=== PATIENT | male | born 1935 | race Hispanic/Latino ===

== ENCOUNTER 2020-11-09 13:26 | Emergency (ER) | payer MEDICARE, MEDICAID ==
[~2020-11-09] VITALS: Ht 152.4 cm; Wt 45.0 kg
[~2020-11-09 13:26] MED LIST: NAPROSYN500 MG OR
[2020-11-09 14:44] LABS: IMMATURE GRANULOCYTES 0.5 % (0.0-5.0); NEUT# 4.99 thou/uL (1.82-7.42); RED BLOOD COUNT 3.06 mill/uL (4.70-6.10); RED CELL DISTRI WIDTH 12.7 % (11.5-15.5)
[2020-11-09 14:51] LABS: HEMATOCRIT 30.6 % (39.0-50.0); HEMOGLOBIN 9.8 g/dl (14.0-18.0)
[2020-11-09 15:08] LABS: ALBUMIN 4.1 g/dL (3.2-5.0); ALKALINE PHOSPHATASE 61 u/l (38-126); ANION GAP 15 (6-22 (CALC)); BUN 25 mg/dL (8-23); BUN/CREATININE RATIO 15 (12-20 (CALC)); CARBON DIOXIDE 20 mmol/l (22-30); CHLORIDE 104 mmol/l (95-108); CREATININE 1.7 mg/dL (0.7-1.3); GFR 38 ML/MIN (>=60 (CALC)); GFR FOR AFR.AMER. 46 ML/MIN (>=60 (CALC)); POTASSIUM 4.4 mmol/l (3.5-5.1); SGOT/AST 19 u/l (19-48); SODIUM 135 mmol/l (137-146); TOTAL PROTEIN 7.5 g/dL (6.3-8.2)
[2020-11-09 15:15] LABS: MYOGLOBIN 60 ng/mL (0 - 121)
[2020-11-09 15:16] LABS: BILIRUBIN, TOTAL 0.4 mg/dL (0.0-1.4)
[2020-11-09 15:45] LABS: URINE BILIRUBIN - DIPSTICK NEGATIVE (NEGATIVE); URINE BLOOD DIPSTICK SMALL (NEGATIVE); URINE COLOR YELLOW; URINE GLUCOSE - DIPSTICK NEGATIVE (NEGATIVE); URINE KETONE NEGATIVE (NEGATIVE); URINE LEUK ESTERASE MODERATE (NEGATIVE); URINE NITRITE - DIPSTICK NEGATIVE (Negative); URINE PH 5.5 (4.5-8.0); URINE PROTEIN - DIPSTICK NEGATIVE (NEG-TRACE); URINE SPECIFIC GRAVITY 1.025; URINE UROBILINOGEN - DIPSTICK 0.2 E.U./dL (0.2)
[2020-11-09 15:56] LABS: URINE WBC 50-100 WBC/hpf (0-5)
[2020-11-09] MEDS ORDERED: KEFLEX500 M1 PO (16:00)
[2020-11-09 16:03] VITALS: BP 160/89
== END 2020-11-09 16:19 | disposition home or self-care (01) ==
LOC: ED 13:26
PROVIDERS: Emergency Medicine
DX: N39.0 Urinary tract infection, site not specified (principal); B96.1 Klebsiella pneumoniae [K. pneumoniae] as the cause of diseases classified elsewhere; S79.912A Unspecified injury of left hip, initial encounter; V18.0XXA Pedal cycle driver injured in noncollision transport accident in nontraffic accident, initial encounter; Y93.55 Activity, bike riding; Z20.822 Contact with and (suspected) exposure to COVID-19

== ENCOUNTER 2021-06-05 23:23 | Emergency (ER) | payer MEDICARE, MEDICAID ==
[~2021-06-05 23:23] MED LIST changes: +KEFLEX500 M1 PO
[2021-06-06] MEDS ORDERED: HYDROCODONE/ACE1 T12 PO (00:27)
[2021-06-06 00:45] LABS: HEMATOCRIT 30.7 % (39.0-50.0); HEMOGLOBIN 9.8 g/dl (14.0-18.0); IMMATURE GRANULOCYTES 0.5 % (0.0-5.0); MEAN CORPUSCULAR HGB 32.9 pG CALC (26.0-32.0); MEAN CORPUSCULAR HGB CONC 31.9 g/dL CAL (32.0-36.0); NEUT# 5.69 thou/uL (1.82-7.42); RED BLOOD COUNT 2.98 mill/uL (4.70-6.10); RED CELL DISTRI WIDTH 13.3 % (11.5-15.5)
[2021-06-06 01:05] LABS: ALBUMIN 4.2 g/dL (3.2-5.0); BILIRUBIN, TOTAL 0.4 mg/dL (0.0-1.4); CREATININE 1.4 mg/dL (0.7-1.3); POTASSIUM 4.6 mmol/l (3.5-5.1); TOTAL PROTEIN 7.5 g/dL (6.3-8.2)
[2021-06-06 01:12] LABS: URINE BILIRUBIN - DIPSTICK NEGATIVE (NEGATIVE); URINE BLOOD DIPSTICK NEGATIVE (NEGATIVE); URINE COLOR YELLOW; URINE GLUCOSE - DIPSTICK NEGATIVE (NEGATIVE); URINE KETONE NEGATIVE (NEGATIVE); URINE LEUK ESTERASE NEGATIVE (NEGATIVE); URINE PROTEIN - DIPSTICK TRACE mg/dL (NEG-TRACE); URINE UROBILINOGEN - DIPSTICK 0.2 E.U./dL (0.2)
[2021-06-06 01:20] LABS: URINE NITRITE - DIPSTICK NEGATIVE (Negative)
[2021-06-06] MEDS ORDERED: AMLODIPINE BESYL5 MG PO (01:45)
[2021-06-06] MEDS ORDERED: LISINOP/HCTZ1 TA1 PO (01:45)
[2021-06-06 02:06] VITALS: BP 102/55
== END 2021-06-06 02:12 | disposition home or self-care (01) ==
LOC: ED 23:23
PROVIDERS: Family Medicine
DX: I10 Essential (primary) hypertension (principal); T46.5X6A Underdosing of other antihypertensive drugs, initial encounter; Z91.128 Patient's intentional underdosing of medication regimen for other reason

== ENCOUNTER 2021-12-05 07:30 | Emergency (ER) | payer MEDICARE, MEDICAID ==
[~2021-12-05] VITALS: Ht 152.4 cm; Wt 70.0 kg
[~2021-12-05 07:30] MED LIST changes: +AMLODIPINE BESYL5 MG PO; +HYDROCODONE/ACE1 T12 PO; +LISINOP/HCTZ1 TA1 PO
[2021-12-05 08:22] LABS: HEMATOCRIT 32.5 % (39.0-50.0); HEMOGLOBIN 10.5 g/dl (14.0-18.0); IMMATURE GRANULOCYTES 0.2 % (0.0-5.0); MEAN CORPUSCULAR HGB 29.9 pG CALC (26.0-32.0); MEAN CORPUSCULAR HGB CONC 32.3 g/dL CAL (32.0-36.0); NEUT# 3.96 thou/uL (1.82-7.42); RED BLOOD COUNT 3.51 mill/uL (4.70-6.10); RED CELL DISTRI WIDTH 12.6 % (11.5-15.5)
[2021-12-05 08:30] LABS: MEAN CELL VOLUME 92.6 fL CALC (80.0-100.0)
[2021-12-05 08:36] LABS: ALBUMIN 4.1 g/dL (3.2-5.0); BILIRUBIN, TOTAL 0.5 mg/dL (0.0-1.4); CREATININE 1.6 mg/dL (0.7-1.3); POTASSIUM 4.7 mmol/l (3.5-5.1); TOTAL PROTEIN 7.6 g/dL (6.3-8.2)
[2021-12-05 10:33] LABS: URINE BILIRUBIN - DIPSTICK NEGATIVE (NEGATIVE); URINE BLOOD DIPSTICK TRACE-INTACT (NEGATIVE); URINE COLOR YELLOW; URINE GLUCOSE - DIPSTICK NEGATIVE (NEGATIVE); URINE KETONE NEGATIVE (NEGATIVE); URINE LEUK ESTERASE NEGATIVE (NEGATIVE); URINE PH 7.5 (4.5-8.0); URINE PROTEIN - DIPSTICK NEGATIVE (NEG-TRACE); URINE SPECIFIC GRAVITY 1.015; URINE UROBILINOGEN - DIPSTICK 0.2 E.U./dL (0.2)
[2021-12-05 10:42] LABS: URINE NITRITE - DIPSTICK NEGATIVE (Negative)
[2021-12-05] MEDS ORDERED: ZESTRIL5 M1 PO (10:45)
[2021-12-05] MEDS ORDERED: NORVASC5 M1 PO (10:45)
[2021-12-05 11:35] VITALS: BP 180/83
[2021-12-05] MEDS ORDERED: TRAMADOL HYDROC50 M1 PO (11:55)
== END 2021-12-05 12:21 | disposition home or self-care (01) ==
LOC: ED 07:30
PROVIDERS: Family Medicine
DX: I10 Essential (primary) hypertension (principal); T46.5X6A Underdosing of other antihypertensive drugs, initial encounter; Z91.128 Patient's intentional underdosing of medication regimen for other reason

== ENCOUNTER 2021-12-20 10:30 | Emergency (ER) | payer MEDICARE, MEDICAID ==
[~2021-12-20] VITALS: Ht 152.4 cm; Wt 57.0 kg
[~2021-12-20 10:30] MED LIST changes: +NORVASC5 M1 PO; +TRAMADOL HYDROC50 M1 PO; +ZESTRIL5 M1 PO
[2021-12-20] MEDS ORDERED: HYDROCORT2.5 % TOP (11:40)
[2021-12-20] MEDS ORDERED: MEDDOSEPAK PO (11:40)
[2021-12-20 11:58] VITALS: BP 161/78
== END 2021-12-20 12:00 | disposition home or self-care (01) ==
LOC: ED 10:30
DX: R21 Rash and other nonspecific skin eruption (principal); I10 Essential (primary) hypertension

== ENCOUNTER 2022-11-28 23:31 | Emergency (ER) | payer MEDICARE, MEDICAID ==
[~2022-11-28] VITALS: Ht 152.4 cm; Wt 52.0 kg
[~2022-11-28 23:31] MED LIST changes: +HYDROCORT2.5 % TOP; +MEDDOSEPAK PO
[2022-11-29 00:05] VITALS: BP 146/67
[2022-11-29 00:15] VITALS: BP 149/65
[2022-11-29 00:30] VITALS: BP 144/66
[2022-11-29 00:45] VITALS: BP 147/68
[2022-11-29] MEDS ORDERED: MEDDOSEPAK PO (00:57)
[2022-11-29 01:00] VITALS: BP 148/67
[2022-11-29 01:15] VITALS: BP 154/61
== END 2022-11-29 01:32 | disposition home or self-care (01) ==
LOC: ED 23:31
DX: M17.0 Bilateral primary osteoarthritis of knee (principal); I10 Essential (primary) hypertension

== ENCOUNTER 2022-12-04 10:12 | Emergency (ER) | payer MEDICARE, MEDICAID ==
[~2022-12-04] VITALS: Ht 152.4 cm; Wt 54.0 kg
[2022-12-04] MEDS ORDERED: XANAX0.25 MG PO (12:21)
[2022-12-04 13:41] VITALS: BP 185/77
== END 2022-12-04 13:51 | disposition home or self-care (01) ==
LOC: ED 10:12
DX: G47.09 Other insomnia (principal); T38.0X5A Adverse effect of glucocorticoids and synthetic analogues, initial encounter; I10 Essential (primary) hypertension

== ENCOUNTER 2023-01-12 11:52 | Emergency (ER) | payer MEDICARE, MEDICAID ==
[~2023-01-12] VITALS: Ht 152.4 cm; Wt 52.0 kg
[2023-01-12] VITALS (9 sets, daily range): BP systolic 193–206; BP diastolic 76–89
[~2023-01-12 11:52] MED LIST changes: +XANAX0.25 MG PO
[2023-01-12] MEDS ORDERED: NORVASC5 M1 PO (13:14)
== END 2023-01-12 14:43 | disposition home or self-care (01) ==
LOC: ED 11:52
DX: K59.00 Constipation, unspecified (principal); I10 Essential (primary) hypertension

== ENCOUNTER 2023-02-26 16:35 | Observation (INO) | payer MEDICARE, MEDICAID ==
[~2023-02-26] VITALS: Ht 152.4 cm; Wt 72.0 kg
[2023-02-26] VITALS (11 sets, daily range): BP systolic 143–174; BP diastolic 61–73
[2023-02-26 17:22] LABS: BASO% 0.4 % (0-3); EOS% 3.1 % (0-8); IMMATURE GRANULOCYTES 0.4 % (0.0-5.0); LYMPH% 17.2 % (15-41); MEAN CORPUSCULAR HGB 31.8 pG CALC (26.0-32.0); MEAN CORPUSCULAR HGB CONC 31.3 g/dL CAL (32.0-36.0); MONO% 9.9 % (2-13); NEUT# 4.72 thou/uL (1.82-7.42); RED BLOOD COUNT 2.36 mill/uL (4.70-6.10); RED CELL DISTRI WIDTH 15.3 % (11.5-15.5)
[2023-02-26 17:24] LABS: URINE BILIRUBIN - DIPSTICK NEGATIVE (NEGATIVE); URINE BLOOD DIPSTICK SMALL (NEGATIVE); URINE COLOR YELLOW; URINE GLUCOSE - DIPSTICK NEGATIVE (NEGATIVE); URINE KETONE NEGATIVE (NEGATIVE); URINE LEUK ESTERASE NEGATIVE (NEGATIVE); URINE NITRITE - DIPSTICK NEGATIVE (Negative); URINE PROTEIN - DIPSTICK NEGATIVE (NEG-TRACE); URINE SPECIFIC GRAVITY 1.015; URINE UROBILINOGEN - DIPSTICK 0.2 E.U./dL (0.2)
[2023-02-26 17:26] LABS: HEMOGLOBIN 7.5 g/dl (14.0-18.0); MEAN CELL VOLUME 101.7 fL CALC (80.0-100.0)
[2023-02-26 17:33] LABS: URINE RBC 0-2 RBC/hpf (0-5)
[2023-02-26 17:35] LABS: ALBUMIN 3.7 g/dL (3.2-5.0); ALKALINE PHOSPHATASE 83 u/l (38-126); CARBON DIOXIDE 25 mmol/l (22-30); CHLORIDE 108 mmol/l (95-108); CREATININE 1.6 mg/dL (0.7-1.3); GFR FOR AFR.AMER. 50 ML/MIN (>=60 (CALC)); GFR OTHER RACES 41 ML/MIN (>=60 (CALC)); SGOT/AST 22 u/l (19-48); SODIUM 138 mmol/l (137-146); TOTAL PROTEIN 6.2 g/dL (6.3-8.2)
[2023-02-26 17:42] LABS: ANION GAP 10 (6-22 (CALC)); BILIRUBIN, TOTAL 0.2 mg/dL (0.2-1.3); BUN 45 mg/dL (8-23); BUN/CREATININE RATIO 28 (12-20 (CALC)); POTASSIUM 5.3 mmol/l (3.5-5.1)
[2023-02-27] VITALS (9 sets, daily range): BP systolic 124–172; BP diastolic 37–70
[2023-02-27 05:59] LABS: HEMATOCRIT 22.5 % (39.0-50.0); HEMOGLOBIN 7.2 g/dl (14.0-18.0); MEAN CELL VOLUME 101.8 fL CALC (80.0-100.0); MEAN CORPUSCULAR HGB 32.6 pG CALC (26.0-32.0); RED BLOOD COUNT 2.21 mill/uL (4.70-6.10); RED CELL DISTRI WIDTH 15.3 % (11.5-15.5)
[2023-02-28] VITALS (10 sets, daily range): BP systolic 127–169; BP diastolic 54–73
[2023-02-28 06:26] LABS: BASO% 0.4 % (0-3); EOS% 3.1 % (0-8); HEMATOCRIT 23.2 % (39.0-50.0); HEMOGLOBIN 7.2 g/dl (14.0-18.0); IMMATURE GRANULOCYTES 0.4 % (0.0-5.0); LYMPH% 21.7 % (15-41); MEAN CELL VOLUME 100.9 fL CALC (80.0-100.0); MEAN CORPUSCULAR HGB 31.3 pG CALC (26.0-32.0); MONO% 10.2 % (2-13); NEUT# 4.29 thou/uL (1.82-7.42); NEUT% 64.2 % (42-76); RED BLOOD COUNT 2.3 mill/uL (4.70-6.10); RED CELL DISTRI WIDTH 15.1 % (11.5-15.5)
[2023-02-28 06:49] LABS: ALBUMIN 3.2 g/dL (3.2-5.0); ALKALINE PHOSPHATASE 64 u/l (38-126); ANION GAP 9 (6-22 (CALC)); BILIRUBIN, TOTAL 0.2 mg/dL (0.2-1.3); BUN 28 mg/dL (8-23); BUN/CREATININE RATIO 22 (12-20 (CALC)); CARBON DIOXIDE 24 mmol/l (22-30); CHLORIDE 109 mmol/l (95-108); CREATININE 1.3 mg/dL (0.7-1.3); GFR FOR AFR.AMER. > 60 ML/MIN (>=60 (CALC)); GFR OTHER RACES 52 ML/MIN (>=60 (CALC)); POTASSIUM 4.9 mmol/l (3.5-5.1); SGOT/AST 21 u/l (19-48); SODIUM 137 mmol/l (137-146); TOTAL PROTEIN 5.7 g/dL (6.3-8.2)
[2023-02-28] MEDS ORDERED: AMOXICILLIN500 MG PO (13:32)
== END 2023-02-28 18:28 ==
LOC: ED 16:35 → ED-I 18:50 → ED 19:12 → MS2 19:13
PROVIDERS: Family Medicine; Nurse Practitioner Family; ADMIT Internal Medicine; ATTEND Internal Medicine
PROC: 30233N1 Transfusion of Nonautologous Red Blood Cells into Peripheral Vein, Percutaneous Approach (ICD-10-PCS; principal; 2023-02-28)
DX: J18.9 Pneumonia, unspecified organism (principal); D50.9 Iron deficiency anemia, unspecified; N17.9 Acute kidney failure, unspecified; I12.9 Hypertensive chronic kidney disease with stage 1 through stage 4 chronic kidney disease, or unspecified chronic kidney disease; N18.9 Chronic kidney disease, unspecified; I25.10 Atherosclerotic heart disease of native coronary artery without angina pectoris; M17.0 Bilateral primary osteoarthritis of knee; S01.01XA Laceration without foreign body of scalp, initial encounter; W19.XXXA Unspecified fall, initial encounter; Z91.81 History of falling; Z95.5 Presence of coronary angioplasty implant and graft; Z20.822 Contact with and (suspected) exposure to COVID-19
CPT/HCPCS: J1756; P9016

== ENCOUNTER 2023-05-03 17:01 | Emergency (ER) | payer MEDICARE, MEDICAID ==
[2023-05-03] VITALS (21 sets, daily range): BP systolic 129–206; BP diastolic 62–88
[~2023-05-03] VITALS: Ht 152.4 cm; Wt 61.2 kg
[~2023-05-03 17:01] MED LIST changes: +AMOXICILLIN500 MG PO
[2023-05-03 17:51] LABS: URINE BILIRUBIN - DIPSTICK NEGATIVE (NEGATIVE); URINE BLOOD DIPSTICK MODERATE (NEGATIVE); URINE COLOR YELLOW; URINE GLUCOSE - DIPSTICK NEGATIVE (NEGATIVE); URINE KETONE NEGATIVE (NEGATIVE); URINE LEUK ESTERASE TRACE (NEGATIVE); URINE PROTEIN - DIPSTICK 100 mg/dL (NEG-TRACE); URINE SPECIFIC GRAVITY 1.025; URINE UROBILINOGEN - DIPSTICK 0.2 E.U./dL (0.2)
[2023-05-03 17:53] LABS: URINE NITRITE - DIPSTICK NEGATIVE (Negative); URINE WBC 0-2 WBC/hpf (0-5)
[2023-05-03 19:14] LABS: BASO% 0.4 % (0-3); EOS% 0.2 % (0-8); IMMATURE GRANULOCYTES 0.2 % (0.0-5.0); LYMPH% 12.5 % (15-41); MEAN CELL VOLUME 99.7 fL CALC (80.0-100.0); MEAN CORPUSCULAR HGB 31.9 pG CALC (26.0-32.0); MONO% 11.4 % (2-13); NEUT# 4.02 thou/uL (1.82-7.42); NEUT% 75.3 % (42-76); RED BLOOD COUNT 2.98 mill/uL (4.70-6.10); RED CELL DISTRI WIDTH 14.3 % (11.5-15.5)
[2023-05-03 19:16] LABS: HEMATOCRIT 29.7 % (39.0-50.0); HEMOGLOBIN 9.5 g/dl (14.0-18.0)
[2023-05-03 19:27] LABS: ALBUMIN 4.1 g/dL (3.2-5.0); BILIRUBIN, TOTAL 0.5 mg/dL (0.2-1.3); CREATININE 2.1 mg/dL (0.7-1.3); POTASSIUM 4.6 mmol/l (3.5-5.1)
== END 2023-05-04 | disposition short-term general hospital (02) ==
LOC: ED 17:01
PROVIDERS: Nurse Practitioner
DX: S12.500A Unspecified displaced fracture of sixth cervical vertebra, initial encounter for closed fracture (principal); S00.03XA Contusion of scalp, initial encounter; I10 Essential (primary) hypertension; W01.0XXA Fall on same level from slipping, tripping and stumbling without subsequent striking against object, initial encounter; Y92.009 Unspecified place in unspecified non-institutional (private) residence as the place of occurrence of the external cause

== ENCOUNTER 2023-11-23 07:45 | Emergency (ER) | payer MEDICARE, MEDICAID ==
[~2023-11-23] VITALS: Ht 152.4 cm; Wt 58.0 kg
[2023-11-23] MEDS ORDERED: NAPROXEN500 MG PO (08:42)
[2023-11-23] MEDS ORDERED: NORVASC5 M1 PO (08:42)
[2023-11-23 08:58] VITALS: BP 183/84
== END 2023-11-23 09:25 | disposition home or self-care (01) ==
LOC: ED 07:45
DX: M25.552 Pain in left hip (principal); M16.12 Unilateral primary osteoarthritis, left hip; I10 Essential (primary) hypertension

== ENCOUNTER 2023-11-29 09:37 | Emergency (ER) | payer MEDICARE, MEDICAID ==
[2023-11-29] VITALS (14 sets, daily range): BP systolic 69–178; BP diastolic 41–100
[~2023-11-29] VITALS: Ht 152.4 cm; Wt 62.0 kg
[~2023-11-29 09:37] MED LIST changes: +NAPROXEN500 MG PO
[2023-11-29 12:28] LABS: URINE BILIRUBIN - DIPSTICK Negative (NEGATIVE); URINE BLOOD DIPSTICK Small (NEGATIVE); URINE GLUCOSE - DIPSTICK Negative (NEGATIVE); URINE KETONE Negative (NEGATIVE); URINE LEUK ESTERASE Trace (NEGATIVE); URINE NITRITE - DIPSTICK Negative (Negative); URINE PH 5.5 (4.5-8.0); URINE PROTEIN - DIPSTICK 30 mg/dL (NEG-TRACE); URINE SPECIFIC GRAVITY 1.015; URINE UROBILINOGEN - DIPSTICK 0.2 E.U./dL (0.2)
[2023-11-29 12:51] LABS: URINE COLOR Yellow
[2023-11-29 13:00] LABS: URINE RBC 0-2 RBC/hpf (0-5); URINE SQUAMOUS EPITHELIAL CELL FEW EPI/hpf (0-FEW); URINE WBC 0-2 WBC/hpf (0-5)
[2023-11-29 13:01] LABS: URINE BACTERIA RARE hpf
[2023-11-29] MEDS ORDERED: MOTRIN800 MG PO (13:10)
[2023-11-29] MEDS ORDERED: PERCOCET 5/325M1 TAB PO (13:12)
== END 2023-11-29 13:28 | disposition home or self-care (01) ==
LOC: ED 09:37
PROVIDERS: Emergency Medicine
DX: S32.592A Other specified fracture of left pubis, initial encounter for closed fracture (principal); I10 Essential (primary) hypertension; W19.XXXA Unspecified fall, initial encounter

== ENCOUNTER 2023-12-13 12:38 | Emergency (ER) | payer MEDICARE, MEDICAID ==
[~2023-12-13 12:38] MED LIST changes: +MOTRIN800 MG PO; +PERCOCET 5/325M1 TAB PO
== END 2023-12-13 13:39 | disposition left against medical advice (07) ==
LOC: ED 12:38 → LWOBS 13:39
DX: Z53.21 Procedure and treatment not carried out due to patient leaving prior to being seen by health care provider (principal)

== ENCOUNTER 2023-12-13 16:51 | Emergency (ER) | payer MEDICARE, MEDICAID | END 2023-12-13 17:31 | disposition left against medical advice (07) | LOC: ED 16:51 → LWOBS 17:31 | DX: Z53.21 Procedure and treatment not carried out due to patient leaving prior to being seen by health care provider (principal) ==

== ENCOUNTER 2023-12-22 10:13 | Emergency (ER) | payer MEDICARE, MEDICAID ==
[~2023-12-22] VITALS: Ht 152.4 cm; Wt 58.9 kg
[2023-12-22] MEDS ORDERED: SODIUM CHLORIDE 0.9% 1,000 ML IV ONE (10:35)
[2023-12-22 10:45] LABS: BASO% 0.6 % (0-3); EOS% 3.3 % (0-8); HEMOGLOBIN 9.5 g/dl (14.0-18.0); IMMATURE GRANULOCYTES 0.6 % (0.0-5.0); MEAN CELL VOLUME 102.8 fL CALC (80.0-100.0); MEAN CORPUSCULAR HGB 33.7 pG CALC (26.0-32.0); MEAN CORPUSCULAR HGB CONC 32.8 g/dL CAL (32.0-36.0); MONO% 7.2 % (2-13); NEUT# 4.59 thou/uL (1.82-7.42); NEUT% 66.3 % (42-76); RED BLOOD COUNT 2.82 mill/uL (4.70-6.10); RED CELL DISTRI WIDTH 11.9 % (11.5-15.5)
[2023-12-22 10:57] LABS: ALBUMIN 4.2 g/dL (3.2-5.0); ANION GAP 13 (6-22 (CALC)); BILIRUBIN, TOTAL 0.3 mg/dL (0.2-1.3); BUN 26 mg/dL (8-23); BUN/CREATININE RATIO 16 (12-20 (CALC)); CARBON DIOXIDE 18 mmol/l (22-30); CHLORIDE 108 mmol/l (95-108); CREATININE 1.7 mg/dL (0.7-1.3); GFR FOR AFR.AMER. 46 ML/MIN (>=60 (CALC)); GFR OTHER RACES 38 ML/MIN (>=60 (CALC)); LIPASE 48 u/l (23-300); POTASSIUM 4.1 mmol/l (3.5-5.1); SGOT/AST 31 u/l (19-48); SODIUM 135 mmol/l (137-146); TOTAL PROTEIN 7.2 g/dL (6.3-8.2)
[2023-12-22 11:00] LABS: ALKALINE PHOSPHATASE 153 u/l (38-126)
[2023-12-22] MEDS ORDERED: IMODIUM A-D2 M3 PO (11:40)
[2023-12-22 11:49] VITALS: BP 142/83
== END 2023-12-22 11:57 | disposition home or self-care (01) ==
LOC: ED 10:13
PROVIDERS: Family Medicine
DX: R19.7 Diarrhea, unspecified (principal); I10 Essential (primary) hypertension

== ENCOUNTER 2024-07-27 18:56 | Emergency (ER) | payer MEDICARE, MEDICAID ==
[~2024-07-27] VITALS: Ht 152.4 cm; Wt 52.0 kg
[~2024-07-27 18:56] MED LIST changes: +CEFTRIAXONE2 GM IV; +CIPROFLOXACN500 MG PO; +IMODIUM A-D2 M3 PO; +MELOXICAM7.5 MG PO
[2024-07-27] MEDS ORDERED: TRIAMCINOLON0.13 EX (20:12)
[2024-07-27] MEDS ORDERED: VISTARIL PO (20:12)
[2024-07-27 20:13] VITALS: BP 141/72
[2024-07-27 20:15] VITALS: BP 139/64
[2024-07-27 20:30] VITALS: BP 140/69
[2024-07-27 20:35] VITALS: BP 140/69
== END 2024-07-27 20:44 | disposition home or self-care (01) ==
LOC: ED 18:56
DX: R21 Rash and other nonspecific skin eruption (principal); I10 Essential (primary) hypertension

== ENCOUNTER 2024-08-08 10:28 | Emergency (ER) | payer MEDICARE, MEDICAID ==
[~2024-08-08] VITALS: Ht 152.4 cm; Wt 52.0 kg
[~2024-08-08 10:28] MED LIST changes: +TRIAMCINOLON0.13 EX; +VISTARIL PO
[2024-08-08 10:52] VITALS: BP 124/56
[2024-08-08 11:01] VITALS: BP 120/55
[2024-08-08 11:17] VITALS: BP 177/111
[2024-08-08 11:20] VITALS: BP 117/54
[2024-08-08] MEDS ORDERED: DiphenhydrAMINE HCL 25 MG CPLT PO ONE (11:25)
[2024-08-08] MEDS ORDERED: BENADRYL25 M1 PO (11:30)
[2024-08-08] MEDS ORDERED: HYDROCORTISONE2.5 % EX (11:30)
[2024-08-08 11:58] VITALS: BP 117/54
== END 2024-08-08 12:31 | disposition home or self-care (01) ==
LOC: ED 10:28
DX: R21 Rash and other nonspecific skin eruption (principal); I10 Essential (primary) hypertension